=== PATIENT | male | born 1945 | race Caucasian/White ===

== ENCOUNTER 2024-08-12 09:41 | Day surgery (SDC) | payer MEDICARE, OTHER, SELFPAY ==
[2024-08-12] VITALS (11 sets, daily range): BP systolic 105–134; BP diastolic 67–92; BMI 35.9
--- NOTE | 2024-08-12 10:10 | HP.FOC2 ---
Focused History & Physical
Chief Complaint
HPI:
PCP: Silvia Philpi MD
CDY: Wojciech Gabriel DO
Chief Complaint: SOB w/LE edema
HPI / Indication for Planned Procedure:
79 y/o, PMH cardiomyopathy, chronic systolic HFrEF 30-40%, DM, CKD3a, lower extremity edema, chronic venous insufficiency.
Seen by cardiology in May, plan was for Coronary CTA to r/o CAD as etiology of cardiomyopathy. This was unable to be done d/t ectopy, and therefore referred for [facility] today.
Relevant Past Medical History: Diabetes, Hypertension and Other (Cardiomyopathy, chronic systolic HFrEF, 30-40%, HLD, peripheral venous insufficiency with LLE open wounds, ulcers and cellulitis)
Relevant Social History: ETOH (1 scotch 4x/week) and Tobacco Use (former)
Relevant Family History: Negative
Relevant Past Surgical History: Positive for (L TKR, Shoulder replacement, hernia repain)
Review of Systems
Review of Pertinent Systems: All Systems Negative
Medication
See Medication form for detailed medications: Yes
Medication List (including Herbals & OTC):
alogliptin 25 mg PO DAILY
aspirin 81 mg PO DAILY
carboxymethylcellulose sodium 0.5% (Refresh Plus) 1 drp Both eyes TID
cholecalciferol (vitamin D3) 25 mcg PO DAILY
collagenase clostridium histo. (Santyl) 1 applic TOP DAILY PRN
cyanocobalamin (vitamin B-12) 1,000 mcg PO DAILY
duloxetine 30 mg PO BID
empagliflozin (Jardiance) 25 mg PO DAILY
ezetimibe 10 mg PO DAILY
fenofibrate nanocrystallized 145 mg PO DAILY
furosemide 40 mg PO PRN PRN
metformin 1,000 mg PO BID
metoprolol succinate ER 12.5 mg (1/2 x 25 mg) PO DAILY
omeprazole 20 mg PO .qod
pramipexole 1 mg PO DAILY
pravastatin 80 mg PO DAILY
sacubitril-valsartan 24-26 mg (Entresto) 1 tab PO BID
spironolactone 25 mg PO DAILY AT DINNER
tramadol 50 mg PO Q4H PRN
Medications Reviewed: Yes
Allergies and Reactions
Patient has Allergies: No
Pertinent Physical Exam
All Other Systems: Negative
Head/Neck: Normal
Lungs: Normal
Heart: Normal
Abdomen: Normal
Extremities: Normal
Neurological: Normal
Diagnosis / Assessment
Cardiomyopathy/Chronic systolic HFrEF 30-40%
HTN
HLD
DM
CKD3a
peripheral venous insufficiency w/left foot ulcer/cellulitis/NHW
Plan / Procedure
[facility] today to eval for CAD as the etiology of CM
hold metformin 48h post dye load
followup w/Dr. Gabriel at d/c
Anesthesia/Sedation to be done by Anesthesia Provider: No
[2024-08-12 10:25] LABS: Glucose - Point of Care 108 mg/dl (70-99)
--- NOTE | 2024-08-12 12:07 | ITS.CL.CATH ---
[facility] - Catheterization
Cardiac Catheterization
Procedure Report:
RIGHT AND LEFT HEART CATHETERIZATION
Date of Procedure: August 12, 2024
Primary Care Physician: TIFFANY
Primary Human Resources Operations Coordinator: Dr. Melo Gabriel
Procedures performed:
1: Coronary angiography
2: Left ventricular hemodynamic assessment
3: Right heart catheterization
INDICATION: The patient is a 79-year-old man with a past medical history significant for hypertension hyperlipidemia and recent diagnosis of heart failure with depressed ejection fraction. Echocardiography performed on May 15 showed an
ejection fraction visually estimated at 40% with no significant valvular disease. He is referred for right and left heart catheterization. He admits that he has not been taking Lasix regularly or following his daily weights. Creatinine was 1.2 on
07/23/2024.
ACCESS: The patient was prepped and draped in usual sterile fashion. A 6 [place] sheath was placed in the right radial artery using the Seldinger over the wire technique. A 6 [place] sheath was then placed in the right brachial femoral vein using
the same technique. Ultrasound guidance was used.
HEMODYNAMIC FINDINGS (mmHg):
RA(a,v,m): 22, 19, 20
RV(s/d,EDP): 62/16, 22
PA(s/d/m): 62/38, 48
PCWP(a,v,m): 37, 39, 35
LV(s/d,EDP): 117/17, 33
Ao(s/d,m): 117/82, 96
Oxygen Saturations (mg/dl):
PA: 57% on 4 L oxygen by nasal cannula
LV: 96% on 4 L of oxygen by nasal cannula
Cardiac Output/Index (l/min / l/min/m2):
Estimated Kike Method: 3.8 /1.7
VALVE HEMODYNAMICS:
No significant aortic or mitral valve stenosis.
ANGIOGRAPHIC FINDINGS:
Single-plane Left Ventriculography in RICK Projection: Not done
Coronary Angiography:
Dominance: Left
Left Main: Normal
Left Anterior Descending: The LAD is a large-caliber vessel that gives rise to 2 major diagonal branches. These vessels have mild nonobstructive luminal irregularities with no obstructive disease and normal distal flow.
Ramus intermedius: Large-caliber vessel that is widely patent.
Left Circumflex: The left coronary artery circumflex artery is a medium caliber dominant vessel that gives rise to a small first obtuse marginal branch, small left-sided posterior left ventricular branch and terminates in a medium caliber left-sided
posterior descending artery. These vessels are all widely patent with only mild luminal irregularities.
Right Coronary: The right coronary artery is a relatively small nondominant vessel that gives rise to 2 small distal vessels that are widely patent with normal flow.
Fluoroscopy Time (min): 3.0
Radiation Dose (mGy): 534
DAP (Gy.cm2): 33
Closure device: None. A TR band was applied for hemostasis at the right wrist. The femoral vein groin sheath will be pulled with manual pressure for hemostasis.
Complications: None.
ASSESSMENT:
1: Very mild nonobstructive coronary artery disease. This clearly a nonischemic cardiomyopathy.
2: Elevated left ventricular filling pressures in the setting of known LV systolic dysfunction. Moderately elevated pulmonary pressures.
CONCLUSIONS and RECOMMENDATIONS:
1: Medical therapy for a nonischemic cardiomyopathy. The patient was given Lasix 40 mg IV and I will have him start Lasix 40 mg daily in addition to performing daily weights and restricting his daily fluid intake to 2 L. Close clinical follow-up
as scheduled.
Gina Redmond M.D.
== END 2024-08-12 14:32 | disposition home or self-care (01) ==
LOC: CATH 09:41
PROVIDERS: ATTENDING PHYSICIAN Internal Medicine Interventional Cardiology; FAMILY PHYSICIAN Internal Medicine; OTHER PHYSICIAN Internal Medicine Cardiovascular Disease
DX: I25.10 Atherosclerotic heart disease of native coronary artery without angina pectoris (principal); E11.621 Type 2 diabetes mellitus with foot ulcer; I42.8 Other cardiomyopathies; N18.31 Chronic kidney disease, stage 3a; I49.8 Other specified cardiac arrhythmias; I13.0 Hypertensive heart and chronic kidney disease with heart failure and stage 1 through stage 4 chronic kidney disease, or unspecified chronic kidney disease; I50.20 Unspecified systolic (congestive) heart failure; E78.5 Hyperlipidemia, unspecified; I87.2 Venous insufficiency (chronic) (peripheral); Z79.899 Other long term (current) drug therapy; Z79.84 Long term (current) use of oral hypoglycemic drugs; Z79.82 Long term (current) use of aspirin; E11.22 Type 2 diabetes mellitus with diabetic chronic kidney disease
CPT/HCPCS: 82962; 93005; 93460; C1894; Q9967